=== PATIENT | female | born 1970 | race Caucasian/White ===

== ENCOUNTER → 2016-06-16 | Outpatient (CLI) | payer OTHER ==
--- NOTE | 2016-06-16 21:36 | MA ---
Digital Screening Mammogram Bilateral 06/16/2016 13:49 Indication: Screening Comparison: April 2013, March 2013, and February 2012. Technique: Standard digital cephalocaudal and mediolateral oblique projections are obtained. This e xamination is processed by the [employer] computer-aided detection system. Findings: Standard views of both breasts demonstrate dense fibroglandular tissue which decreases the sensitivity to mammography, breast density D (75-100%). A few benign-appearing calcifications are see n on the right which are stable. No suspicious microcalcification, dominant mass, or architectural di stortion. Biopsy marker from prior stereotactic biopsy is seen in the right breast. IMPRESSION: Benign. BI-RADS 2. Recommendation: Screening mammogram in one year. [facility] will send a result letter to the patient. Negative mammography should not preclude additional workup of a clinically suspicious finding. The patient's information is entered into a reminder system with a target due date for her next mammo gram.
== END ==
LOC: FIMAGING 13:47
DX: Z12.31 Encounter for screening mammogram for malignant neoplasm of breast (principal)
CPT/HCPCS: G0202

== ENCOUNTER → 2017-06-22 | Outpatient (CLI) | payer OTHER | LOC: FIMAGING 10:32 | DX: Z12.31 Encounter for screening mammogram for malignant neoplasm of breast (principal) ==